=== PATIENT | female | born 1965 | race Caucasian/White ===

== ENCOUNTER → 2016-10-04 | Outpatient (CLI) | payer BC ==
--- NOTE | 2016-10-07 10:07 | Diagnostic Imaging Report ---
EXAMINATION: Bilateral screening mammogram with a Computer Aided Detection (CAD) system. INDICATION: Screening. PERSONAL HISTORY: No current complaints stated on the questionnaire. COMPARISON: 09/30/2015. FINDINGS: There is a focal asymmetry in the lateral aspect of the left breast. This appears more prominent compared to the prior exam and is measuring about 1 cm in size. Focal compression views and an ultrasound evaluation are recommended. The background heterogeneously dense parenchyma otherwise in both breasts appears unchanged. IMPRESSION: Focal compression views and an ultrasound evaluation for a lateral left breast focal asymmetry are recommended. ACR BI-RADS Category 0: Incomplete. (Needs additional imaging evaluation). Result letter will be mailed to the patient. Note: At least 10% of breast cancer is not imaged by mammography. Dictated by: Dictated on workstation # [id number]
== END ==
LOC: RAD 09:45
PROVIDERS: ATTEND Internal Medicine Hematology & Oncology
DX: Z12.31 Encounter for screening mammogram for malignant neoplasm of breast (principal)
CPT/HCPCS: 77067

== ENCOUNTER → 2017-02-03 | Outpatient (CLI) | payer BC ==
--- NOTE | 2017-02-03 10:49 | Diagnostic Imaging Report ---
EXAMINATION: DEXA scan. INDICATION: Screening for osteoporosis. COMPARISON: There are no prior studies available for comparison. TECHNIQUE: The bone mineral density of the hips and spine was measured. FINDINGS: The T score for the spine is -0.7. The T score for the left hip is -0.1 and for the right hip is 0.2. All of these values are within normal limits. IMPRESSION: The bone mineral density of the hips and spine is within normal limits. Dictated by: Dictated on workstation # [id number]
== END ==
LOC: RAD 08:41
PROVIDERS: ATTEND Internal Medicine Hematology & Oncology
DX: Z13.820 Encounter for screening for osteoporosis (principal); C50.412 Malignant neoplasm of upper-outer quadrant of left female breast
CPT/HCPCS: 77080

== ENCOUNTER 2017-03-16 09:18 | Outpatient (RCR) | payer BC ==
[2017-03-16 09:31] LABS: BASOPHILS # (AUTO) 0.1 10^3/uL (0.0-0.1); BASOPHILS % (AUTO) 1 % (0-10); EOSINOPHILS # (AUTO) 0.2 10^3/uL (0.0-0.3); EOSINOPHILS % (AUTO) 2 % (0-10); HEMATOCRIT 45 % (35-52); HEMOGLOBIN 14.9 G/DL (11.5-16.0); LYMPHOCYTES # (AUTO) 1.8 X 10^3 (1.0-4.0); LYMPHOCYTES % (AUTO) 27 % (12-44); MEAN CORPUSCULAR HEMOGLOBIN 29 PG (25-34); MEAN CORPUSCULAR HGB CONC 33 G/DL (32-36); MEAN CORPUSCULAR VOLUME 88 FL (80-99); MEAN PLATELET VOLUME 10.1 FL (7.4-10.4); MONOCYTES # (AUTO) 0.7 X 10^3 (0.0-1.0); MONOCYTES % (AUTO) 10 % (0-12); NEUTROPHILS % (AUTO) 59 % (42-75); PLATELET COUNT 267 10^3/uL (130-400); RED BLOOD COUNT 5.11 10^6/uL (4.35-5.85); RED CELL DISTRIBUTION WIDTH 12.5 % (10.0-14.5); WHITE BLOOD COUNT 6.7 10^3/uL (4.3-11.0)
[2017-03-16 09:59] LABS: ALANINE AMINOTRANSFERASE 14 U/L (0-55); ALBUMIN 4.3 GM/DL (3.2-4.5); ALKALINE PHOSPHATASE 90 U/L (40-136); BILIRUBIN,TOTAL 0.6 MG/DL (0.1-1.0); BUN/CREATININE RATIO 22; CARBON DIOXIDE 26 MMOL/L (21-32); CHLORIDE 107 MMOL/L (98-107); CREATININE SERUM 0.74 MG/DL (0.60-1.30); GFR ESTIMATED > 60; GLUCOSE 94 MG/DL (70-105); POTASSIUM 3.7 MMOL/L (3.6-5.0); SODIUM 143 MMOL/L (135-145); TOTAL PROTEIN 6.8 GM/DL (6.4-8.2)
== END 2017-06-14 | disposition home or self-care (01) ==
LOC: ONC 09:18
PROVIDERS: ATTEND Internal Medicine Hematology & Oncology
DX: C50.412 Malignant neoplasm of upper-outer quadrant of left female breast (principal)
CPT/HCPCS: 36415; 80053; 85025; 99213

== ENCOUNTER → 2017-10-05 | Outpatient (CLI) | payer BC ==
--- NOTE | 2017-10-05 19:15 | Diagnostic Imaging Report ---
EXAMINATION: Digital mammogram bilateral screening with 3D tomosynthesis. INDICATION: Screening. COMPARISON: This study was compared to the prior exams of 10/04/2016, 10/02/2015, and 09/30/2014. At this time, there are no current complaints. The current study was also evaluated with a Computer Aided Detection (CAD) system. FINDINGS: The left breast implant noted on the prior exam is again evident and no different. The coarse calcifications in the upper-outer aspect of the left breast seen previously are also again visualized and seem similar to the prior exam. The stereotactic clip in this area is no different. The fibroglandular tissue in the left breast is heterogeneously dense. This does limit the sensitivity of this exam. On the craniocaudad view in the lateral aspect of the breast interposed between the dense calcifications, there is a small poorly defined area of increased density. This finding cannot be identified on the MLO view but seems to persist on the tomographic images. This area of altered density may merely be secondary to fibroglandular tissue and/or scar formation. Even so, I would recommend that a compression view of this finding be obtained in the CC projection for further evaluation. Rolled views in the CC projection should also be obtained. I would recommend that this area be evaluated by ultrasound as well. The fibroglandular tissue in the right breast is also heterogeneously dense. The suspected cysts in the upper-outer aspect of the right breast seen on the prior study have decreased in size. There is no primary or secondary sign of malignancy involving the right breast. IMPRESSION: 1. Additional mammographic views and ultrasound of the left breast would be recommended for further study. 2. There is no evidence of malignancy involving the right breast. ACR BI-RADS Category 0: Incomplete. (Needs additional imaging evaluation). Result letter will be mailed to the patient. Note: At least 10% of breast cancer is not imaged by mammography. Dictated by: Dictated on workstation # [id number]
== END ==
LOC: RAD 09:22
PROVIDERS: ATTEND Internal Medicine Hematology & Oncology
DX: Z12.31 Encounter for screening mammogram for malignant neoplasm of breast (principal)
CPT/HCPCS: 77067

== ENCOUNTER → 2017-10-19 | Outpatient (CLI) | payer BC ==
--- NOTE | 2017-10-19 13:28 | Diagnostic Imaging Report ---
Indication: Left breast density. Patient presents for additional views. Correlation was made with recent screening study from 10/05/2017. 2-D and 3-D unilateral left diagnostic mammography was performed including spot compression CC and rolled CC views. The area of nodular density in the outer left breast resolves with additional views. This most likely represented superimposed tissue. No underlying mass is identified. Coarse calcifications are again noted. Impression: BI-RADS category 2 Additional views fail to demonstrate a discrete mass. The patient may return to routine annual screening mammography. ACR BI-RADS Category 2: Benign findings. Result letter will be mailed to the patient. Note: At least 10% of breast cancer is not imaged by mammography. Dictated by: Dictated on workstation # [id number]
== END ==
LOC: RAD 12:30
PROVIDERS: ATTEND Nurse Practitioner Adult Health
DX: C50.412 Malignant neoplasm of upper-outer quadrant of left female breast (principal)

== ENCOUNTER 2018-03-15 08:54 | Outpatient (RCR) | payer BC ==
[2018-03-15 09:03] LABS: BASOPHILS # (AUTO) 0.1 10^3/uL (0.0-0.1); BASOPHILS % (AUTO) 1 % (0-10); EOSINOPHILS # (AUTO) 0.2 10^3/uL (0.0-0.3); EOSINOPHILS % (AUTO) 3 % (0-10); HEMATOCRIT 42 % (35-52); HEMOGLOBIN 14.9 G/DL (11.5-16.0); LYMPHOCYTES # (AUTO) 1.3 X 10^3 (1.0-4.0); LYMPHOCYTES % (AUTO) 19 % (12-44); MEAN CORPUSCULAR HEMOGLOBIN 31 PG (25-34); MEAN CORPUSCULAR HGB CONC 36 G/DL (32-36); MEAN CORPUSCULAR VOLUME 86 FL (80-99); MEAN PLATELET VOLUME 9.7 FL (7.4-10.4); MONOCYTES # (AUTO) 0.8 X 10^3 (0.0-1.0); MONOCYTES % (AUTO) 11 % (0-12); NEUTROPHILS # (AUTO) 4.4 X 10^3 (1.8-7.8); NEUTROPHILS % (AUTO) 66 % (42-75); PLATELET COUNT 235 10^3/uL (130-400); RED BLOOD COUNT 4.89 10^6/uL (4.35-5.85); RED CELL DISTRIBUTION WIDTH 12.2 % (10.0-14.5); WHITE BLOOD COUNT 6.7 10^3/uL (4.3-11.0)
[2018-03-15 09:26] LABS: ALANINE AMINOTRANSFERASE 23 U/L (0-55); ALBUMIN 4.4 GM/DL (3.2-4.5); ALKALINE PHOSPHATASE 91 U/L (40-136); BILIRUBIN,TOTAL 0.6 MG/DL (0.1-1.0); BUN/CREATININE RATIO 15; CALCIUM 9.5 MG/DL (8.5-10.1); CARBON DIOXIDE 25 MMOL/L (21-32); CHLORIDE 103 MMOL/L (98-107); CREATININE SERUM 0.81 MG/DL (0.60-1.30); GFR ESTIMATED > 60; GLUCOSE 99 MG/DL (70-105); POTASSIUM 3.8 MMOL/L (3.6-5.0); SODIUM 140 MMOL/L (135-145)
== END 2018-06-13 | disposition home or self-care (01) ==
LOC: ONC 08:54
PROVIDERS: ATTEND Internal Medicine Hematology & Oncology
DX: C50.412 Malignant neoplasm of upper-outer quadrant of left female breast (principal)
CPT/HCPCS: 36415; 80053; 85025; 99213

== ENCOUNTER → 2018-11-07 | Outpatient (CLI) | payer BC ==
--- NOTE | 2018-11-08 08:52 | Diagnostic Imaging Report ---
Digital mammogram. Indication: Bilateral screening with 3-D tomosynthesis and CAD. This study was compared to prior exams of 10/05/2017, 10/04/2016 and 10/02/2015. At this time there are no current complaints. The patient has a diagnosis of breast cancer and did undergo a lumpectomy with radiation therapy in 1995. The breast implant on the left seen on the previous exams is again evident. The implant appears to be intact. The extensive dystrophic changes within the left breast seen previous are again visualized and no different. The stereotactic clip seen on the prior exams is also stable. However on the displaced views of the left breast there is a vague area of slightly increased density interposed between the implant and the dystrophic calcifications. This finding could be secondary to scar formation. The possibility that there is an underlying malignant process in this area should still be considered. I would recommend that a compression/magnification view of this area be performed in the ML and CC projections for further study. Ultrasound should also be performed. The fibroglandular tissue in the right breast is heterogeneously dense. This does limit the sensitivity of this exam. Overall, there has been no significant change when compared to the previous exam. There is no primary or secondary sign of malignancy involving the right breast. Impression: Additional mammographic views and ultrasound of the left breast would be recommended for further study. ACR BI-RADS Category 0: Incomplete. (Needs additional imaging evaluation). Result letter will be mailed to the patient. Note: At least 10% of breast cancer is not imaged by mammography. Dictated by: Dictated on workstation # [id number]
== END ==
LOC: RAD 10:50
PROVIDERS: ATTEND Internal Medicine Hematology & Oncology
DX: Z12.31 Encounter for screening mammogram for malignant neoplasm of breast (principal); Z85.3 Personal history of malignant neoplasm of breast; Z98.82 Breast implant status
CPT/HCPCS: 77067

== ENCOUNTER → 2018-11-13 | Outpatient (CLI) | payer BC ==
--- NOTE | 2018-11-13 18:26 | Diagnostic Imaging Report ---
INDICATION: Left breast density. CORRELATION is made with diagnostic mammogram from earlier the same day and screening mammogram from 11/07/2018. FINDINGS: Sonographic interrogation of the upper outer left breast was performed. Moderate shadowing is identified from patient's known dystrophic calcifications at this location. No concerning sonographic finding is identified. No fluid collection is seen. IMPRESSION: BI-RADS Category 3 Dystrophic calcifications in the upper-outer left breast produce a moderate amount of shadowing. No concerning sonographic finding is seen. Followup left mammogram in 6 months is recommended to show continued stability. ACR BI-RADS Category 3: Probably benign findings. Result letter will be mailed to the patient. Note: At least 10% of breast cancer is not imaged by mammography. Dictated by: Dictated on workstation # [id number]
--- NOTE | 2018-11-13 19:01 | Diagnostic Imaging Report ---
INDICATION: Left breast density. Patient presents for additional views. Correlation is made with recent screening study from 11/07/2018. Unilateral left 2-D and 3-D diagnostic mammography was performed. The current study was also evaluated with a Computer Aided Detection (CAD) system. 3-D tomosynthesis was also performed and reviewed. FINDINGS: Scattered fibroglandular tissue is seen in the left breast. Extensive dystrophic calcifications in the upper-outer left breast are noted. There is some mild persistent density just deep to the dystrophic calcifications in the outer portion of the left breast approximately 6-7 cm deep to the nipple. This is less prominent on compression views and may represent fibroglandular tissue or scarring. No suspicious calcifications are seen. IMPRESSION: There is some mild persistent density in the upper and outer left breast at mid depth with additional views, indeterminate. Further evaluation with ultrasound is recommended. ACR BI-RADS Category 0: Incomplete. (Needs additional imaging evaluation). Result letter will be mailed to the patient. Note: At least 10% of breast cancer is not imaged by mammography. Dictated by: Dictated on workstation # [id number]
== END ==
LOC: RAD 14:02
PROVIDERS: ATTEND Nurse Practitioner Adult Health
DX: R92.2 Inconclusive mammogram (principal); R92.1 Mammographic calcification found on diagnostic imaging of breast; Z85.3 Personal history of malignant neoplasm of breast
CPT/HCPCS: 76642

== ENCOUNTER → 2019-03-14 | Outpatient (CLI) | payer BC ==
[2019-03-14 09:19] LABS: BASOPHILS % (AUTO) 1 % (0-10); EOSINOPHILS # (AUTO) 0.2 10^3/uL (0.0-0.3); EOSINOPHILS % (AUTO) 3 % (0-10); HEMATOCRIT 42 % (35-52); HEMOGLOBIN 13.9 G/DL (11.5-16.0); LYMPHOCYTES # (AUTO) 1.2 X 10^3 (1.0-4.0); LYMPHOCYTES % (AUTO) 19 % (12-44); MEAN CORPUSCULAR HEMOGLOBIN 29 PG (25-34); MEAN CORPUSCULAR HGB CONC 33 G/DL (32-36); MEAN CORPUSCULAR VOLUME 87 FL (80-99); MEAN PLATELET VOLUME 9.6 FL (7.4-10.4); MONOCYTES # (AUTO) 0.7 X 10^3 (0.0-1.0); MONOCYTES % (AUTO) 12 % (0-12); NEUTROPHILS # (AUTO) 3.9 X 10^3 (1.8-7.8); NEUTROPHILS % (AUTO) 65 % (42-75); PLATELET COUNT 214 10^3/uL (130-400); RED CELL DISTRIBUTION WIDTH 12.6 % (10.0-14.5)
[2019-03-14 09:39] LABS: ALANINE AMINOTRANSFERASE 28 U/L (0-55); ALBUMIN 4.1 GM/DL (3.2-4.5); ALKALINE PHOSPHATASE 82 U/L (40-136); BILIRUBIN,TOTAL 0.5 MG/DL (0.1-1.0); BUN/CREATININE RATIO 15; CALCIUM 9.5 MG/DL (8.5-10.1); CARBON DIOXIDE 26 MMOL/L (21-32); CHLORIDE 105 MMOL/L (98-107); CREATININE SERUM 0.81 MG/DL (0.60-1.30); GFR ESTIMATED > 60; GLUCOSE 121 MG/DL (70-105); POTASSIUM 4.2 MMOL/L (3.6-5.0); SODIUM 141 MMOL/L (135-145); TOTAL PROTEIN 6.6 GM/DL (6.4-8.2)
== END ==
LOC: EDSTATUS 06-14 14:29 → ONC 08:32
PROVIDERS: ATTEND Internal Medicine Hematology & Oncology
DX: C50.412 Malignant neoplasm of upper-outer quadrant of left female breast (principal)
CPT/HCPCS: 36415; 80053; 85025; 99213

== ENCOUNTER → 2019-03-28 | Outpatient (CLI) | payer BC | LOC: ONC 14:12 | PROVIDERS: ATTEND Internal Medicine Hematology & Oncology | DX: C50.412 Malignant neoplasm of upper-outer quadrant of left female breast (principal) | CPT/HCPCS: 99213 ==

== ENCOUNTER → 2019-05-02 | Outpatient (CLI) | payer BC ==
--- NOTE | 2019-05-02 10:26 | Diagnostic Imaging Report ---
INDICATION: Left breast carcinoma. Patient presents for six-month follow-up of left breast density. Correlation is made with prior mammogram from 11/07/2018, 11/13/2018 as well as 10/19/2017. Unilateral left 2-D and 3-D diagnostic mammography was performed. Left breast implant remains in place. Dystrophic calcifications in the upper-outer left breast again noted. The area of density adjacent to the dystrophic calcifications on prior imaging is no longer appreciated. This most likely represented fibroglandular tissue. No mass or suspicious calcifications are seen. Left axilla is unremarkable. IMPRESSION: BI-RADS Category 2 No mammographic features suspicious for malignancy are identified. Patient may return to screening mammography. ACR BI-RADS Category 2: Benign findings. Result letter will be mailed to the patient. Note: At least 10% of breast cancer is not imaged by mammography. Dictated by: Dictated on workstation # [id number]
== END ==
LOC: RAD 09:12
PROVIDERS: ATTEND Nurse Practitioner Adult Health
DX: R92.8 Other abnormal and inconclusive findings on diagnostic imaging of breast (principal); Z85.3 Personal history of malignant neoplasm of breast

== ENCOUNTER → 2021-12-09 | Outpatient (CLI) | payer BC ==
--- NOTE | 2021-12-10 16:44 | Diagnostic Imaging Report ---
PROCEDURE: MRI left joint lower extremity without contrast. TECHNIQUE: Multiplanar, multisequence non contrast-enhanced MRI of the left lower extremity was accomplished. INDICATION: Chronic ankle pain. EXAMINATION: Left ankle MRI without contrast 12/09/2021. FINDINGS: The Achilles tendon is intact. The plantar fascia appears unremarkable. Plantar calcaneal spurring incidentally noted. There is mild edema overlying the peroneal tendons. Heterogeneity of the peroneus brevis tendon is noted best seen on axial sequences image 15. This appears to represent a short segment longitudinal split tear. More proximally and distally the peroneus brevis tendon is intact. The peroneus longus tendon is intact. The flexor and extensor tendons appear intact. The anterior and posterior inferior tibiofibular ligaments appear intact. The anterior talofibular ligament is thickened and somewhat ill-defined likely due to a sprain or partial tear. There is no discontinuity or full-thickness tear appreciated. Posterior talofibular ligament is intact. The deltoid ligament contains mild hyperintensity along its superficial fibers suspicious for a sprain or partial tear. No complete discontinuity is appreciated. There are superimposed small osseous fragments within the region some of which contain edema suggesting possible acute to subacute fracture. Mild edema is also noted along the distal tip of the medial malleolus. The remaining osseous structures appear intact. IMPRESSION: 1. Sprain versus partial tear of the superficial fibers of the deltoid ligament. Adjacent osseous fragments demonstrate edema suggesting acute to subacute injury. There is abutting edema within the tip of the medial malleolus. 2. Sprain or partial tear of the anterior talofibular ligament without complete discontinuity. Remaining visualized ligaments intact. 3. Short segment longitudinal split tear of the peroneus brevis tendon. Dictated by: Dictated on workstation # [id number]
== END ==
LOC: RAD 08:32
PROVIDERS: ATTEND Podiatrist Foot & Ankle Surgery
DX: S93.492A Sprain of other ligament of left ankle, initial encounter (principal); M76.822 Posterior tibial tendinitis, left leg
CPT/HCPCS: 73721

== ENCOUNTER 2022-02-16 11:07 | Observation (INO) | payer BC ==
[2022-02-16] VITALS (17 sets, daily range): BP systolic 121–153; BP diastolic 72–109
[~2022-02-16] VITALS: Ht 157.5 cm; Wt 99.9 kg
[2022-02-16] MEDS ORDERED: PATIENT MAY USE OWN MEDS, ALL PO SCH ×2 (11:30→16:15)
[2022-02-16] MEDS ORDERED: NITROGLYCERIN 0.4 MG SL TABS BTL 25'S SL PRN (11:30)
[2022-02-16] MEDS ORDERED: ONDANSETRON 4 MG/2 ML (SDV) Z0FRAN IVP PRN (11:30)
--- NOTE | 2022-02-16 14:28 | History & Physical-Hospitalist ---
History of Present Illness HPI/Chief Complaint Patient is a 56-year-old female with past medical history of hypertension, hyperlipidemia, breast cancer who presented to outside ER due to chest pain. She states she woke up around 4 AM with chest pain. She describes it as a tightness that went up her jaw. She took her blood pressure and it was high so she took her normal morning medicines hoping it would help. She also decided to take a bath and see if that would help her calm down. She checked her blood pressure again and it remained high and she had persistent tightness across her chest and jaw so decided to seek evaluation in the emergency dep artment. She denies any nausea, vomiting, chills, diaphoresis. She denies shortness of breath until arrival to the emergency department and then states it felt like she could not take a deep breath. She described her pain as 10 out of 10 at that time. She was given 2 doses of nitro and aspirin which resolved her pain. Her troponin trended from neagtive to 0.05 at their facility. She was transferred here for cardiac evaluation. Source: patient Date Seen 02/16/22 Time Seen by a Provider: 14:23 Attending Physician Shayne Love MD PCP Admitting Physician: Gemma Lowery MD Attending Physician: Gemma Lowery MD Referring Physician Date of Admission Feb 16, 2022 at 13:36 Home Medications & Allergies Home Medications Reviewed patient Home Medication Reconciliation performed by pharmacy medication reconciliations hydraulic technician and/or nursing. Patients Allergies have been reviewed. Allergies Allergies Coded Allergies codeine (Verified Allergy, Unknown, 02/24/12) meperidine HCl (Verified Allergy, Unknown, 02/24/12) morphine (Verified Allergy, Unknown, 02/24/12) Uncoded Allergies contrast ( Allergy, Mild, hives, 02/16/22) ISOVUE-300 CONTRAST ( Adverse Reaction, Mild, Hives, 02/16/22) Past Tvejklt-Qregrx-Lwfawl Hx Patient Social History Tobacco Use?: No Smoking Status: Former Smoker Use of E-Cig and/or Vaping dev: No Substance use?: No Alcohol Use?: No Pt feels they are or have been: No Immunizations Up To Date Tetanus Booster (TDap): Unknown Hepatitis A: No Hepatitis B: No Current Status status: No status: No Advance Directives: No Communicates: Verbally Primary Language: Rwandan Preferred Spoken Language: Rwandan Is interpretation needed?: No Implanted or Applied Medical D: None Review of Systems Constitutional: No chills, No fever EENTM: no symptoms reported Respiratory: see HPI; No dyspnea on exertion; short of breath Cardiovascular: see HPI Gastrointestinal: no symptoms reported Genitourinary: no symptoms reported Musculoskeletal: no symptoms reported Skin: no symptoms reported Psychiatric/Neurological: No Symptoms Reported Physical Exam Physical Exam Vital Signs Vital Signs - First Documented 02/16/22 02/16/22 02/16/22 13:44 13:46 13:54 Temp 37.1 Pulse 73 Resp 23 B/P (MAP) 131/93 (106) Pulse Ox 97 O2 Delivery Room Air Capillary Refill : Height, Weight, BMI Height: 5'2.00" Weight: 200lbs. oz. 90.176754nf; 40.27 BMI Method: General Appearance: No Apparent Distress, WD/WN, Obese HEENT: PERRL/EOMI, Moist Mucous Membranes; No Scleral Icterus (L), No Scleral Icterus (R) Neck: Normal Inspection, Supple Respiratory: Lungs Clear, No Accessory Muscle Use, No Respiratory Distress Cardiovascular: Regular Rate, Rhythm, No JVD, No Murmur Gastrointestinal: Normal Bowel Sounds, Non Tender, Soft Extremity: Normal Capillary Refill, No Calf Tenderness, No Pedal Edema Neurologic/Psychiatric: Alert, Oriented x3, Normal Mood/Affect Skin: Normal Color, Warm/Dry Results Results/Procedures Labs Laboratory Tests 02/17/22 05:23 Patient resulted labs reviewed. Assessment/Plan Admission Diagnosis NSTEMI Admission Status: Observation Assessment and Plan NSTEMI Symptoms concerning for angina Improved with nitro Troponin trended up Cardiology consulted, appreciate recs Repeat troponin Received Lovenox, Plavix,and Metoprolol at OSH Telemetry HTN HLD Continue home meds DVT ppx: Received Lovenox already Diagnosis/Problems Diagnosis/Problems (1) NSTEMI (non-ST elevated myocardial infarction) (2) HLD (hyperlipidemia) (3) Essential (primary) hypertension (4) Obesity GEMMA LOWERY MD Feb 16, 2022 14:28
[2022-02-16] MEDS ORDERED: NS IV 1000 ML 1,000 ML ONE (14:33)
[2022-02-16] MEDS ORDERED: HEParin (CATH LAB) 1,000 ML IV ONE (14:33)
[2022-02-16] MEDS ORDERED: LIDOCAINE 1% INJ 20 ML VIAL ONE (14:34)
[2022-02-16] MEDS ORDERED: fentaNYL INJ 100 MCG/2 ML AMP ONE (14:34)
[2022-02-16] MEDS ORDERED: MIDAZOLAM 2 MG/2 ML (VERSED) VIAL ONE ×2 (14:34→15:14)
[2022-02-16] MEDS ORDERED: diphenhydrAMINE 50 MG/ML INJ (BENADRYL) ONE (14:45)
[2022-02-16] MEDS ORDERED: methylPREDNISolone 125 MG (Solu-MEDROL) VIAL ONE (14:45)
--- NOTE | 2022-02-16 15:01 | Consultation-Cardiology ---
HPI-Cardiology Cardiology Consultation: Date of Consultation 02/16/22 Time Seen by a Provider: 14:00 Date of Admission Attending Physician Shayne Love MD Admitting Physician Admitting Physician: Colleen Lowery MD Attending Physician: Colleen Lowery MD Consulting Physician STACY ARITA MD, MA, FACP, FACC, FSCAI, CCDS HPI: Chief Complaint: Chest discomfort 56 yo woman who presented to the [place] [facility] with chest and neck and bilateral shoulder discomfort, started this am, improved with s/l NTG in the ER, never experienced before, feeling of pressure in the chest, symptoms mod in intensity. Denies fever or chills. Denies palp or syncope. Denies swelling. Denies shortness of breath at rest. Denies n/v/d. 2nd troponin [place] [facility] was elevated, indicating NSTEMI. She was transferred to this hosp. Currently, report mild chest pressure Review of Systems-Cardiology Review of Systems Constitutional: malaise; No weight loss, No weight gain Eyes: No vision change Ears/Nose/Throat: No ear discharge, No nasal drainage, No recent hearing loss Respiratory: As described under HPI Cardiovascular: As described under HPI Gastrointestinal: As described under HPI Genitourinary: No dysuria, No hematuria Musculoskeletal: No back pain, No joint pain Skin: No rash, No ulcerations Psychiatric/Neurological: No seizure, No focal weakness, No syncope Hematologic: No bleeding abnormalities [id number]-Hqkdnt-Xohsdu Hx Patient Social History Smoking Status: Former Smoker Have you traveled recently?: No Alcohol Use?: No Pt feels they are or have been: No Past Medical History PMH As described under Assessment. Family Medical History Family Medical History: She does not repor fam h/o early CAD or SCD Allergies and Home Medications Allergies Coded Allergies: Codeine (Verified Allergy, Unknown, 02/24/12) meperidine HCl (Verified Allergy, Unknown, 02/24/12) morphine (Verified Allergy, Unknown, 02/24/12) Patient Home Medication List Home Medication List Reviewed: Yes Physical Exam-Cardiology Physical Exam Vital Signs/I&O 02/16/22 13:44 Pulse 73 Capillary Refill : Constitutional: AAO x 3, well-developed, well-nourished HEENT: No xanthelasmas are seen Neck: carotid pulses are 2 + bilaterally, with good upstrokes Respiratory: No accessory muscle use; other (good, bilat air entry) Cardiovascular: regular rate-rhythm, S1 and S2, systolic murmur (soft ISIDRA at card base) Gastrointestinal: No tender; soft; No guarding, No rebound; audible bowel sounds Extremities: No clubbing, No cyanosis, No significant edema Neurologic/Psychiatric: oriented x 3, other (moves all limbs equally) Skin: warm/dry; No rash on exposed areas, No ulcerations on exposed areas Data Review Labs Laboratory Tests 02/16/22 14:20: A/P-Cardiology Assessment/Admission Diagnosis Ac NSTEMI Hypertension HL Elevated BMI (40) Discussion and Recomendations * Urgent cath recommended because of NSTEMI and ongoing symptoms * We reviewed and discussed the rationale, procedure, risks, benefits, potential complications and alternatives of card cath and possible ad hoc PCI. She understands and provides informed consent * Has been treated with DAPT and enoxaparin and bb * Will be treated for dye allergy (hives) prior to cath STACY ARITA MD FACP FAC CCDS Feb 16, 2022 15:01
[2022-02-16] MEDS ORDERED: HEParin 1000 UNIT/ML (10ML VIAL) FOR BOLUS ONE (15:21)
[2022-02-16] MEDS ORDERED: EPTIFIBATIDE BOLUS 20 ML IV ONE (15:24)
[2022-02-16] MEDS ORDERED: NITRO DRIP 25000 MCG/D5W 250 ML IV ONE (15:43)
[2022-02-16] MEDS ORDERED: ASPIRIN 81 MG CHEW (CHILDREN'S ASA) ONE (16:00)
[2022-02-16] MEDS ORDERED: CLOPIDOGREL 300 MG (PLAVIX) TABLET PO ONE (16:00)
[2022-02-16] MEDS ORDERED: ACETAMINOPHEN 325 MG TABLET PO PRN (16:15)
[2022-02-16] MEDS: NS IV 1000 ML 1,000 ML IV SCH (16:15)
[2022-02-16] MEDS ORDERED: FAMOTIDINE 20 MG (PEPCID) TABLET PO PRN (16:15)
[2022-02-16] MEDS ORDERED: meTOproloL SUCCINATE 50 MG (TOPROL XL) TAB PO SCH (16:45)
[2022-02-16] MEDS ORDERED: FAMOTIDINE 20 MG (PEPCID) TABLET PO NR (16:45)
--- NOTE | 2022-02-16 17:06 | CARDIAC CATHETERIZATION ---
DATE OF SERVICE: 02/16/2022 CARDIAC CATHETERIZATION AND CORONARY INTERVENTION REPORT The patient is a 56-year-old lady with coronary artery disease, risk factors of hypertension and hyperlipidemia, who presented with acute non-ST elevation myocardial infarction. Due to continuing symptoms, urgent cardiac catheterization was recommended. Informed consent was obtained. DESCRIPTION OF PROCEDURE: She was brought to the cardiac catheterization laboratory. Right groin was prepared and draped in the usual sterile fashion. Lidocaine 1% was used for local anesthesia. Modified Seldinger technique was used to advance a 5-[place] Islander sheath in the right femoral artery, 5-[place] Island[place] JL4 catheter for left coronary angiography, 5-[place] Island[place] JR4 catheter was used for right coronary angiography, 5-[place] Island[place] pigtail catheter was used for left heart catheterization and left ventricular angiography. The sheath was then exchanged over a wire for a 6-[place] Islander sheath and we proceeded with percutaneous intervention to the left anterior descending, which was exhibiting 90% mid vessel stenosis. PERCUTANEOUS INTERVENTION TO THE LEFT ANTERIOR DESCENDING ARTERY: We used 6-[place] Island[place] JL3.5 guide catheter to engage the left coronary system. We advanced a BMW wire across the lesion and the tip was placed in the distal vessel. Balloon angioplasty was carried out with a 2.0 x 15 mm balloon. This was removed and we advanced a Skypoint 2.5 x 15 mm stent to the lesion. This was deployed at 10 atmospheres. The balloon was then collapsed and pulled proximally. The proximal half of the stent was dilated with the stent balloon to 18 atmospheres. This was done because the proximal part of the standard segment of slightly larger caliber than the distal part of the standard segment. Subsequent angiography revealed 0% residual stenosis where there was 90% stenosis. Flow throughout the vessel is normal. The distal left anterior descending artery has moderately severe diffuse disease and this was not intervened on. The left circumflex artery has mild to moderate diffuse disease. Right coronary artery is dominant and has multiple up to 50% stenoses in its proximal and mid portions. Following completion of the intervention to the left anterior descending, the angioplasty equipment was removed. Sheath was sutured in place for manual sheath removal on the floor. HEMODYNAMICS: Left ventricular end-diastolic pressure following coronary angiography was 25 mmHg. There is no significant pressure gradient on pullback across the aortic valve. Ascending aortic pressure was 129/99 with a mean of 115 mmHg. LEFT VENTRICULAR ANGIOGRAPHY: Left ventricular angiography was carried out in the right anterior oblique projection. Global left ventricular systolic function is well preserved. Left ventricular ejection fraction is 50 to 55%. CORONARY ANGIOGRAPHY: Coronary calcification is seen. Left main coronary artery does not exhibit significant obstructive disease. Left anterior descending artery had 90% mid vessel stenosis that was successfully stented with Skypoint 2.5 x 15 mm stent. The left anterior descending artery distal portion has diffuse moderately severe disease and does not appear amenable to intervention because of small caliber size and diffuse disease. The left circumflex artery has diffuse mild to moderate disease. The right coronary artery is dominant and has multiple 50% stenoses in its proximal and mid portions. CONCLUSIONS: 1. Coronary artery disease primarily consisting of 90% mid vessel stenosis in the left anterior descending that was successfully stented with Skypoint 2.5 x 15 mm stent. The distal left anterior descending artery has diffuse moderately severe disease. The left circumflex artery has diffuse mild to moderate disease. In the right coronary artery is dominant and has multiple 50% stenosis in its proximal and mid portions. 2. Well preserved global left ventricular systolic function with ejection fraction 50% to 55%. 3. Elevated left ventricular end-diastolic pressure (25 mmHg). DISCUSSION AND RECOMMENDATIONS: Dual antiplatelet therapy has been initiated. Beta scott therapy will be provided as tolerated. Statin therapy will be continued. Further recommendation will be based on her hospital course. Job ID: [id number] DocumentID: [id number] Dictated Date: 02/16/2022 16:07:48 Maintenance Parts Technician Date: 02/16/2022 17:05:43 Dictated By: STACY ARITA MD, MA, FACP, FACC, MTDD
[2022-02-16] MEDS ORDERED: ATROPINE INJ 0.4 MG/ML SDV ONE (18:17)
[2022-02-17] VITALS: BP 112/67
[2022-02-17] MEDS: NS IV 1000 ML 1,000 ML IV SCH (02:15)
[2022-02-17 04:00] VITALS: BP 106/60
[2022-02-17 05:40] LABS: HEMATOCRIT 41 % (35-52); HEMOGLOBIN 14.1 g/dL (11.5-16.0); MEAN CORPUSCULAR HEMOGLOBIN 29 pg (25-34); MEAN CORPUSCULAR HGB CONC 34 g/dL (32-36); MEAN CORPUSCULAR VOLUME 86 fL (80-99); MEAN PLATELET VOLUME 9.7 fL (9.0-12.2); PLATELET COUNT 310 10^3/uL (130-400); WHITE BLOOD COUNT 12.6 10^3/uL (4.3-11.0)
[2022-02-17 05:53] LABS: POTASSIUM 3.9 MMOL/L (3.6-5.0)
[2022-02-17 05:55] LABS: CALCIUM 9.3 MG/DL (8.5-10.1)
[2022-02-17 05:59] LABS: CREATININE SERUM 0.8 MG/DL (0.60-1.30)
[2022-02-17 07:48] VITALS: BP 107/71
[2022-02-17] MEDS ORDERED: CLOPIDOGREL 75 MG (PLAVIX) TABLET PO SCH (09:00)
[2022-02-17] MEDS ORDERED: meTOproloL SUCCINATE 50 MG (TOPROL XL) TAB PO SCH (09:00)
[2022-02-17] MEDS ORDERED: ASPIRIN 81 MG CHEW (CHILDREN'S ASA) PO SCH (09:00)
[2022-02-17] MEDS ORDERED: ATOR80TA76 PO (09:36)
[2022-02-17] MEDS ORDERED: ASPI81TA64 PO (09:36)
[2022-02-17] MEDS ORDERED: METO50TA7 PO (09:36)
[2022-02-17] MEDS ORDERED: CLOP75TA28 PO (09:36)
--- NOTE | 2022-02-17 09:44 | Progress Note - Cardiology ---
Cardiology SOAP Progress Note Subjective: No cp or palp or syncope No shortness of breath at rest No n/v/d No leg or groin discomfort No focal weakness Wishes to go home Objective: I&O/Vital Signs 02/17/22 02/17/22 02/17/22 02/17/22 00:00 00:00 01:00 04:00 Pulse 67 66 67 Resp 7 10 B/P (MAP) 112/67 (82) 106/60 (75) Pulse Ox 97 94 94 O2 Delivery Room Air Room Air Room Air 02/17/22 02/17/22 02/17/22 02/17/22 04:00 07:00 07:48 08:00 Temp 36.6 Pulse 72 63 Resp 14 B/P (MAP) 107/71 (83) Pulse Ox 97 93 98 O2 Delivery Room Air Room Air Room Air 02/17/22 00:00 Intake Total 500 ml Balance 500 ml Weight (Pounds): 200 Weight (Calculated Kilograms): 90.413117 Condition: DP/PT pulses palpable Device Insertion Site: without hematoma Bruising: mild bruising Constitutional: AAO x 3, well-developed, well-nourished Respiratory: No accessory muscle use; other (good, bilat air entry) Cardiovascular: regular rate-rhythm, S1 and S2, systolic murmur (soft ISIDRA at card base) Gastrointestional: No tender; soft; No guarding, No rebound; audible bowel sounds Extremities: No clubbing, No cyanosis, No significant edema Neurologic/Psychiatric: oriented x 3, other (moves all limbs equally) Skin: warm/dry; No rash on exposed areas, No ulcerations on exposed areas Results/Procedures: Labs Laboratory Tests 02/16/22 14:20: Troponin I 3.346*H 02/17/22 05:23: White Blood Count 12.6H, Red Blood Count 4.81, Hemoglobin 14.1, Hematocrit 41, Mean Corpuscular Volume 86, Mean Corpuscular Hemoglobin 29, Mean Corpuscular Hem oglobin Concent 34, Red Cell Distribution Width 12.0, Platelet Count 310, Mean Platelet Volume 9.7, Sodium Level 140, Potassium Level 3.9, Chloride Level 107, Carbon Dioxide Level 19L, Anion Gap 14, Blood Urea Nitrogen 16, Creatinine 0.80, Estimat Glomerular Filtration Rate 85, BUN/Creatinine Ratio 20, Glucose Level 124H, Calcium Level 9.3, Triglycerides Level 93, Cholesterol Level 186, LDL Cholesterol Direct 137H, VLDL Cholesterol 19, HDL Cholesterol 35L A/P: Assessment: Ac NSTEMI - Card cath on 02/16/22: 90% mid vessel stenosis in the left anterior descending that was successfully stented with Skypoint 2.5 x 15 mm stent. The distal left anterior descending artery has diffuse moderately severe disease. The left circumflex artery has diffuse mild to moderate disease. In the right coronary artery is dominant and has multiple 50% stenosis in its proximal and mid portions. Well preserved global left ventricular systolic function with ejection fraction 50% to 55%. Elevated left ventricular end-diastolic pressure (25 mmHg). Hypertension - controlled HL - treated with statin Elevated BMI (40) Plan: * I had a detailed discussion with her regarding her cath findings, interventions undertake, and shelter treatment plan * Advised compliance with meds, including daily ASA and Plavix * Advised eval for DM II with pcp * Risk factor mod discussed * Oupt f/u advised * Questions answered STACY ARITA MD FACP FAC CCDS Feb 17, 2022 09:44
--- NOTE | 2022-02-17 10:05 | Discharge Summary ---
Diagnosis/Chief Complaint Date of Admission Feb 16, 2022 at 13:36 Date of Discharge Discharge Date: Feb 17, 2022 Admission Diagnosis NSTEMI Primary Care Shayne Love MD Discharge Diagnosis (1) HLD (hyperlipidemia) (2) Essential (primary) hypertension (3) Obesity (4) NSTEMI (non-ST elevated myocardial infarction) Discharge Summary Discharge Physical Exam Allergies: Coded Allergies: codeine (Verified Allergy, Unknown, 02/24/12) meperidine HCl (Verified Allergy, Unknown, 02/24/12) morphine (Verified Allergy, Unknown, 02/24/12) Uncoded Allergies: contrast (Allergy, Mild, hives, 02/16/22) ISOVUE-300 CONTRAST (Adverse Reaction, Mild, Hives, 02/16/22) Vitals & I&Os Vital Signs Date Time Temp Pulse Resp B/P (MAP) Pulse Ox O2 Delivery O2 Flow Rate FiO2 02/17/22 08:00 98 Room Air 02/17/22 07:48 36.6 63 14 107/71 (83) General Appearance: No Apparent Distress, WD/WN Respiratory: Lungs Clear, No Respiratory Distress Cardiovascular: Regular Rate, Rhythm, No Murmur Neurologic/Psychiatric: Alert, Oriented x3 Hospital Course Patient was admitted to the hospital secondary to an NSTEMI. She underwent urgent cardiac cath due to persistent chest pain and was found to have a 90% stenosis of her LAD. This was stented and her symptoms resolved. She had an otherwise uneventful hospital stay. She was started on dual antiplatelet therapy, statin and beta-scott therapy, and advised to follow-up with cardiology. He was discharged home in stable improved condition. Labs (last 24 hrs) Laboratory Tests 02/16/22 14:20: Troponin I 3.346*H 02/17/22 05:23: White Blood Count 12.6H, Red Blood Count 4.81, Hemoglobin 14.1, Hematocrit 41, Mean Corpuscular Volume 86, Mean Corpuscular Hemoglobin 29, Mean Corpuscular Hemoglobin Concent 34, Red Cell Distribution Width 12.0, Platelet Count 310, Mean Platelet Volume 9.7, Sodium Level 140, Potassium Level 3.9, Chloride Level 107, Carbon Dioxide Level 19L, Anion Gap 14, Blood Urea Nitrogen 16, Creatinine 0.80, Estimat Glomerular Filtration Rate 85, BUN/Creatinine Ratio 20, Glucose Level 124H, Calcium Level 9.3, Triglycerides Level 93, Cholesterol Level 186, LDL Cholesterol Direct 137H, VLDL Cholesterol 19, HDL Cholesterol 35L Patient resulted labs reviewed. Pending Labs Laboratory Tests 02/17/22 05:23: White Blood Count 12.6, Red Blood Count 4.81, Hemoglobin 14.1, Hematocrit 41, Mean Corpuscular Volume 86, Mean Corpuscular Hemoglobin 29, Mean Corpuscular Hemoglobin Concent 34, Red Cell Distribution Width 12.0, Platelet Count 310, Mean Platelet Volume 9.7, Sodium Level 140, Potassium Level 3.9, Chloride Level 107, Carbon Dioxide Level 19, Anion Gap 14, Blood Urea Nitrogen 16, Creatinine 0.80, Estimat Glomerular Filtration Rate 85, BUN/Creatinine Ratio 20, Glucose Level 124, Calcium Level 9.3, Triglycerides Level 93, Cholesterol Level 186, LDL Cholesterol Direct 137, VLDL Cholesterol 19, HDL Cholesterol 35 Discussion & Recommendations Discharge Planning: >30 minutes discharge planning Discharge Home Medications: Active Scripts Active Children's Aspirin (Aspirin) 81 Mg Tab.chew 81 Mg PO DAILY Metoprolol Succinate 50 Mg Tab.er.24h 50 Mg PO DAILY 60 Days Atorvastatin Calcium 80 Mg Tablet 80 Mg PO HS 90 Days Clopidogrel (Clopidogrel Bisulfate) 75 Mg Tablet 75 Mg PO DAILY 90 Days Instructions to patient/family Please see electronic discharge instructions given to patient. Copy Copies To 1: GEMMA Guzman MD Feb 17, 2022 10:05
--- NOTE | 2022-02-17 10:07 | Discharge Inst-Simple/Standard ---
Discharge Inst-Standard Discharge Medications New, Converted or Re-Newed RX: Call to Patients Pharmacy (RN called in) Patient Instructions/Follow Up Plan of Care/Instructions/FU: Please continue to take your medications as written. Please follow up with your primary care doctor to follow up this hospital stay. Activity as Tolerated: Yes Discharge Diet: Cardiac Diet Return to The Hospital For: Chest pain, shortness of breath, fever, weakness, if you feel you are getting worse. GEMMA GARCIA MD Feb 17, 2022 09:11
== END 2022-02-17 10:55 | disposition home or self-care (01) ==
LOC: CSD 13:36 → UNDODISOB 02-17 10:55
PROVIDERS: ADMIT Family Medicine; ATTEND Family Medicine
DX: I25.10 Atherosclerotic heart disease of native coronary artery without angina pectoris (principal); I21.4 Non-ST elevation (NSTEMI) myocardial infarction; E78.5 Hyperlipidemia, unspecified; I10 Essential (primary) hypertension; E66.9 Obesity, unspecified; Z87.891 Personal history of nicotine dependence; Z79.899 Other long term (current) drug therapy; Z68.41 Body mass index [BMI] 40.0-44.9, adult
CPT/HCPCS: 80048; 80061; 84484; 85027; 93005; 93458; 96374; C1725; C1769; C1874; C1887; C1894 ×2; C8929; C9600; 36415; 93306